=== PATIENT | female | born 1990 | race Two or more races ===

== ENCOUNTER 2024-07-28 17:55 | Observation (INO) | payer MEDICAID, SELFPAY ==
[2024-07-28 18:05] VITALS: BP 104/64; PULSE 82
[2024-07-28 18:43] VITALS: BP 104/64; PULSE 78; RESP 18; RESP 98; TEMP 36.8; BMI 286.8
[2024-07-28 18:52] LABS: ROM Kit Lot # 57809118; Swb Mxed in Solvent 1 min? Yes
[2024-07-28 18:53] LABS: ROM Swab Mixed By: SAUCT; Rupture of Fetal Membranes Negative (Negative)
== END 2024-07-28 19:21 | disposition home or self-care (01) ==
PROVIDERS: Admitting Provider Student in an Organized Health Care Education/Training Program; Visit Provider Student in an Organized Health Care Education/Training Program
DX: Z34.83 Encounter for supervision of other normal pregnancy, third trimester (principal); Z3A.33 33 weeks gestation of pregnancy
CPT/HCPCS: 59025; 59899; 84112

== ENCOUNTER 2024-09-01 13:49 | Outpatient (RCR) | payer MEDICAID, SELFPAY ==
--- NOTE | 2024-08-18 13:35 | XR_ITS ---
Examination: Biophysical profile, ultrasound Date and time of exam: August 18, 2024 at 1356 hrs. Indications: Diagnosis high risk Technique: Multiple transabdominal sonographic images of the pelvis abdomen obtained. Attention is directed to the breathing movement, gross body movement, amniotic fluid volume and tone. Findings: Amniotic fluid index 12.8 cm Total biophysical profile is 8 of 8. breathing movement is 2. Gross body movement is 2. tone is 2. Qualitative amniotic fluid volume is 2 Impression: Biophysical profile is 8 of 8.
[2024-08-18 14:38] VITALS: BP 134/72; PULSE 70; RESP 16; TEMP 36.7
--- NOTE | 2024-08-25 13:49 | XR_ITS ---
Examination: Biophysical profile, ultrasound Date and time of exam: August 25, 2024 1355 hours INDICATIONS: Diagnosis high risk , history stillborn Technique: Multiple transabdominal sonographic images of the pelvis abdomen obtained. Attention is directed to the breathing movement, gross body movement, amniotic fluid volume and tone. Findings: Amniotic fluid index 10.2 cm Total biophysical profile is 8 of 8. breathing movement is 2. Gross body movement is 2. tone is 2. Qualitative amniotic fluid volume is 2 Impression: Biophysical profile is 8 of 8.
[2024-08-25 14:20] VITALS: BP 119/63; PULSE 69; RESP 16; TEMP 36.7
--- NOTE | 2024-09-01 13:53 | XR_ITS ---
Examination: Biophysical profile, ultrasound Date and time of exam: September 01, 2024 1358 hours INDICATIONS: Diagnosis high risk , history stillborn Technique: Multiple transabdominal sonographic images of the pelvis abdomen obtained. Attention is directed to the breathing movement, gross body movement, amniotic fluid volume and tone. Findings: Amniotic fluid index 9.0 cm Total biophysical profile is 8 of 8. breathing movement is 2. Gross body movement is 2. tone is 2. Qualitative amniotic fluid volume is 2 Impression: Biophysical profile is 8 of 8.
[2024-09-01 14:22] VITALS: BP 107/60; PULSE 78; RESP 16; TEMP 36.7
== END 2024-09-01 23:59 | disposition home or self-care (01) ==
LOC: S4S1 13:49
PROVIDERS: Referring Provider Advanced Practice Midwife; Visit Provider Advanced Practice Midwife
DX: O09.93 Supervision of high risk pregnancy, unspecified, third trimester (principal); Z3A.39 39 weeks gestation of pregnancy
CPT/HCPCS: 59025; 76819

== ENCOUNTER 2024-09-02 08:25 | Observation (INO) | payer MEDICAID, SELFPAY ==
[2024-09-02 08:37] VITALS: BP 116/78; PULSE 64; RESP 16; TEMP 36.8
[2024-09-02 08:41] VITALS: BMI 71.4
[2024-09-02 08:43] VITALS: TEMP 36.9
[2024-09-02 08:46] VITALS: PULSE 74; O2SAT 98
[2024-09-02 08:51] VITALS: PULSE 79; O2SAT 98
[2024-09-02 08:56] VITALS: PULSE 67; O2SAT 99
[2024-09-02 09:01] VITALS: PULSE 67; O2SAT 98
== END 2024-09-02 09:09 | disposition home or self-care (01) ==
PROVIDERS: Admitting Provider Student in an Organized Health Care Education/Training Program; Visit Provider Student in an Organized Health Care Education/Training Program
DX: Z34.83 Encounter for supervision of other normal pregnancy, third trimester (principal); Z3A.38 38 weeks gestation of pregnancy
CPT/HCPCS: 59025; 59899

== ENCOUNTER 2024-09-02 17:10 | Inpatient (IN) | payer MEDICAID, SELFPAY ==
[2024-09-02] VITALS (15 sets, daily range): BP systolic 102–138; BP diastolic 55–85; PULSE 67–88; RESP 16–100; TEMP 36.6–37.1; BMI 32.3
[2024-09-02 17:40] LABS: Swb Mxed in Solvent 1 min? Yes
[2024-09-02 17:41] LABS: ROM Swab Mixed By: WORMR; Rupture of Fetal Membranes Positive (Negative)
[2024-09-02 18:53] LABS: Basophils % (Auto) 0 % (0-2.5); Eosinophils # (Auto) 0.1 Thou/mm3 (0.0-0.5); Eosinophils % (Auto) 1 % (0-10); Hematocrit 37.3 % (36.0-46.0); Hemoglobin 12.6 g/dL (12.0-16.0); Immature Granulocytes % (Auto) 1 % (0-0); Immature Granulocytes Auto 0.05 Thou/mm3 (0.00-0.00); Lymphocytes # (Auto) 1.8 Thou/mm3 (1.0-4.8); Lymphocytes % (Auto) 17 % (10-50); Mean Corpuscular HGB Conc 33.8 g/dl (31.0-37.0); Mean Corpuscular Hemoglobin 32.3 pg (25.0-35.0); Mean Corpuscular Volume 96 fL (80-100); Monocytes % (Auto) 9 % (0-12); Neutrophils # (Auto) 7.9 Thou/mm3 (1.8-7.7); Neutrophils % (Auto) 73 % (37-80); Nucleated Red Blood Cell % 0 /100 WBC (0); Platelet Count 223 Thou/mm3 (140-440); RDW Standard Deviation 46.2 fL (36.4-46.3); White Blood Count 10.8 Thou/mm3 (3.6-11.0)
[2024-09-02] MEDS: fentaNYL CIT INJ 50 mCg/ML AMP 2ML 100 MCG IV (19:10)
[2024-09-02] MEDS: OXYTOCIN in NS 20 units 20 UNIT/1,000 ML BAG 125 UNIT IV (20:18)
[2024-09-02] MEDS: TRANEXAMIC ACID 1,000 MG IVPB 1,000 MG/100 ML BAG 200 MG IV ×2 (20:19→22:10)
[2024-09-02] MEDS: METHYLERGONOVINE INJ 0.2 MG/ML VIAL IM (20:19)
[2024-09-02] MEDS: OXYTOCIN INJ 10 UNIT/ML VIAL IM (20:19)
[2024-09-02] MEDS: MISOPROSTOL 200 mCg TABLET 800 MCG PR (20:20)
--- NOTE | 2024-09-02 20:39 | PD.LDHP ---
Documentation for date of: 09/02/24 OB Labor/Induct. HPI History of Present Illness Chief complaint: labor : 5 Para: 3 Term pregnancies: 2 pregnancies: 1 Living children: 2 History of Abortions: Spontaneous and Elective: 1 History of Vaginal deliveries: 3 History of sections: No History of : No Date of last menstrual period: 11/28/23 SERA: 09/03/24 Gestational Age (weeks): 39 Gestational Age (days): 6 Gestational age based on last menstrual period: 39 History of present illness: 34-year-old 5 para 3 admit to labor and delivery for complaints of contractions since 10 in the morning. Complains of leaking fluid since 5:40 PM. Patient is been followed at [facility] care. First visit 37 weeks. Patient has a history of a demise at 29 weeks. She has had an uneventful this . Her last period November 28, 2023. Estimated due date September 03, 2024. 8-week sono in November put her concurrent with her dates. Denies social habits. Denies surgery. Denies chronic illness. She is O+, antibody screen negative, RPR nonreactive, rubella immune, hepatitis B-, hep C negative, HIV negative, GC and Chlamydia were negative. She had a normal 1 hour. GBS negative. And her screening tests NIPT were negative History of Present Dating criteria: LMP confirmed by 2nd trimester US Adequate Care: Yes Obstetrical complications: none Medical complications: none Labs Labs: Negative: Hepatitis B, HIV, Chlamydia, Gonorrhea and Group Beta Strep Review of Systems Review of Systems Systems Reviewed: All systems reviewed, normal except as documented Past Medical History Surgical History SURGICAL: Negative Section Meds Home Medications and Allergies Home Medications ?Medication ?Instructions ?Recorded ?Confirmed ?Type folic acid 1 mg tablet 1 mg PO QDAY 02/19/20 09/02/24 History vit no.95-ferrous 1 tab PO QDAY 02/19/20 09/02/24 History fumarate 28 mg-folic acid 800 mcg tablet () Allergies Allergy/AdvReac Type Severity Reaction Status Date / Time No Known Allergies Allergy Verified 09/02/24 09:10 OB Exam Physical Exam Vital signs: Temp Pulse Resp BP 97.8 F 87 16 110/55 L 09/02/24 17:25 09/02/24 20:39 09/02/24 17:25 09/02/24 20:39 Narrative: Normal heart rate and rhythm. Lungs clear no wheezes. Gravid abdomen. Gynecoid pelvis. Estimated weight 7 and half pounds. Vaginal exam admission was 70%, 5-6, -1. Vertex. Leaking clear fluid. Positive AmniSure. Contractions were 2 to 3 minutes. heart rate was 140 with accelerations and occasional mild variable. Variability was moderate. Detailed Labor and Delivery Exam Dilation (cm): 5-6 Effacement (%): 60 Cervix position: mid station: -1 Consistency: soft Presentation: Vertex Cervical ripeness score: 8 Membranes: ruptured Amniotic fluid: clear Baseline heart rate: 142 monitor accelerations: 15x15 monitor decelerations: Variable care home variability: Moderate (11-25) Contraction frequency (min): 2-3 Contraction duration (sec): 30 Tachysystole: No Contraction intensity: Moderate OB Results Labs 09/02/24 18:18 Labs: Short CBC 09/02/24 Range/Units 18:18 WBC 10.8 (3.6-11.0) Thou/mm3 Hgb 12.6 (12.0-16.0) g/dL Hct 37.3 (36.0-46.0) % Plt Count 223 (140-440) Thou/mm3 Impressions Impression: labor OB Assessment & Plan Assessment and Plan (1) Normal labor and delivery: Status: Acute Additional Plan Plan: anticipate NVD and consult MD rivers
[2024-09-02] MEDS: IBUPROFEN TAB 400 MG TABLET 800 MG PO (20:47)
[2024-09-02] MEDS: ceFAZolin/D5W 2 GM IV 2 GM/100 ML BAG IV (20:48)
--- NOTE | 2024-09-02 20:48 | PD.LDDELS ---
Data ([facility]) Data Hx Section: No : 5 Para: 2 Term: 0 : 0 : 0 Delivery Data ([facility]) Labor Data ROM Date: 09/02/24 ROM Time: 16:20 Rupture Type: SROM Amniotic Fluid: Clear Delivery Data EDC: 09/03/24 EDC calculated by:: LMP/early US confirmation Labor Onset Stage 1 Date: 09/02/24 Labor Onset Stage 1 Time: 16:20 Labor Onset Stage 2 Date: 09/02/24 Labor Onset Stage 2 Time: 19:55 Delivery Date: 09/02/24 Delivery Time: 19:59 Gestational age (weeks): 39 Gestational age (days): 6 Placenta Delivery Date: 09/02/24 Placenta Delivery Time: 20:06 Delivered by: Azul Bhandari Delivery nurse: Maria L Villar Other staff at delivery: Nursery Nurse Other staff at delivery: Janna Julien Delivery Method Delivery: Vaginal Delivery Type: Spontaneous Presentation: Vertex Position: OA Anesthesia Type Primary Anesthesia: None Placenta Placenta Delivery: Spontaneous (placenta inspected, intact) Placenta Cultures Obtained: No Placenta Sent for Examination: No Cord Sample: Cord Blood Obtained Episiotomy Episiotomy: None EBL Estimated blood loss (ml): 475 Umbilical Cord Umbilical Vessels: 3 Nuchal Cord: x1 Body Cord: None [place] Data ([facility]) Data Gender: Male Infant Weight Grams: 3460 1 Minute Total: 9 5 Minute Total: 9
[2024-09-02] MEDS: BENZO/LANO/ALOE (Dermoplast) 60 GM CAN 1 SPRAY TOP (20:51)
[2024-09-03 01:04] VITALS: BP 111/67; PULSE 70; RESP 16; TEMP 36.7; O2SAT 98
[2024-09-03 04:01] LABS: Syphilis Nonreactive (Nonreactive)
[2024-09-03] MEDS: ceFAZolin/D5W 2 GM IV 2 GM/100 ML BAG IV ×2 (04:53→12:30)
[2024-09-03] MEDS: OXYTOCIN in NS 20 units 20 UNIT/1,000 ML BAG 125 UNIT IV (04:53)
[2024-09-03 06:45] LABS: Basophils % (Auto) 0 % (0-2.5); Eosinophils # (Auto) 0.1 Thou/mm3 (0.0-0.5); Eosinophils % (Auto) 1 % (0-10); Hematocrit 33.3 % (36.0-46.0); Hemoglobin 11.4 g/dL (12.0-16.0); Immature Granulocytes % (Auto) 1 % (0-0); Immature Granulocytes Auto 0.05 Thou/mm3 (0.00-0.00); Lymphocytes # (Auto) 1.7 Thou/mm3 (1.0-4.8); Lymphocytes % (Auto) 16 % (10-50); Mean Corpuscular HGB Conc 34.2 g/dl (31.0-37.0); Mean Corpuscular Hemoglobin 32.3 pg (25.0-35.0); Mean Corpuscular Volume 94 fL (80-100); Monocytes # (Auto) 1.1 Thou/mm3 (0.0-0.8); Monocytes % (Auto) 10 % (0-12); Neutrophils # (Auto) 7.9 Thou/mm3 (1.8-7.7); Neutrophils % (Auto) 73 % (37-80); Nucleated Red Blood Cell % 0 /100 WBC (0); Platelet Count 187 Thou/mm3 (140-440); RDW Standard Deviation 45.6 fL (36.4-46.3); Red Blood Count 3.53 Miln/mm3 (4.00-5.20); White Blood Count 10.9 Thou/mm3 (3.6-11.0)
--- NOTE | 2024-09-03 07:51 | PD.LDPPPRG ---
Subjective Subjective Interval history: No complaints of pain. No dizziness. Bonding and breast-feeding. Exam Vital Signs Temp Pulse Resp BP Pulse Ox O2 Del Method 98.0 F 70 16 111/67 98 Room Air 09/03/24 01:04 09/03/24 01:04 09/03/24 01:04 09/03/24 01:04 09/03/24 01:04 09/03/24 01:04 Narrative Exam Normal heart rate and rhythm. Lungs are clear. Breasts are soft. 2+ DTRs. Negative Homans' sign. Fundus firm below the umbilicus. Minimal lochia. Perineum intact. Objective Labs 09/03/24 05:55 Labs: Laboratory Results - last 24 hr 09/02/24 09/02/24 09/03/24 17:22 18:18 05:55 WBC 10.8 10.9 RBC 3.90 L 3.53 L Hgb 12.6 11.4 L Hct 37.3 33.3 L MCV 96 94 MCH 32.3 32.3 MCHC 33.8 34.2 RDW Std Deviation 46.2 45.6 Plt Count 223 187 D Neut % (Auto) 73 73 Lymph % (Auto) 17 16 [place] % (Auto) 9 10 Eos % (Auto) 1 1 Baso % (Auto) 0 0 Neut # (Auto) 7.9 H 7.9 H Lymph # (Auto) 1.8 1.7 [place] # (Auto) 1.0 H 1.1 H Eos # (Auto) 0.1 0.1 Baso # (Auto) 0.0 0.0 Immature Gran # (Auto) 0.05 H 0.05 H Absolute Nucleated RBC 0.00 0.00 Immature Gran % 1 H 1 H Nucleated RBC % 0 0 Membrane Rupture Positive A Syphilis Serology Nonreactive Blood Type O Positive Antibody Screen NEGATIVE Blood Bank Wristband ID Yes Assessment & Plan Problem List (1) Normal labor and delivery: Status: Acute Assessment Comment Assessment comment: 24 hr pp Plan Comment Plan Comment: Discharge home with baby. Continue vitamins. Discussed danger signs and symptoms and ER precautions with parameters. Discussed signs and symptoms of infection. Ibuprofen or Tylenol for pain. Return in 3 to 4 weeks for visit Time Spent With Patient Time: Total time spent is greater than 50% in coordination of care (as documented) at patient's floor/unit and/or counseling patient:
--- NOTE | 2024-09-03 07:56 | ESDS_ITS ---
DS: Providers Provider Date of admission: 09/02/24 17:52 Primary care physician: Ronald Herbert MD Admitting Provider: Azul Bhandari CNM Attending Provider on Admission: Tj Parra MD Consults: 09/02/24 21:10 Referral Routine Comment: Attending Provider on DC: Azul Bhandari CNM Discharging Provider: Azul Bhandari CNM Summary/Hosp Course Brief History: 34-year-old 5 para 3 admit to labor and delivery for complaints of contractions since 10 in the morning. Complains of leaking fluid since 5:40 PM. Patient is been followed at [facility] care. First visit 37 weeks. Patient has a history of a demise at 29 weeks. She has had an uneventful this . Her last period November 28, 2023. Estimated due date September 03, 2024. 8-week sono in November put her concurrent with her dates. Denies social habits. Denies surgery. Denies chronic illness. She is O+, antibody screen negative, RPR nonreactive, rubella immune, hepatitis B-, hep C negative, HIV negative, GC and Chlamydia were negative. She had a normal 1 hour. GBS negative. And her screening tests NIPT were negative Peripartum Data Delivery Method: Normal Vaginal Delivery Episiotomy Description: None Laceration Description: no Time Spent with Patient Time attestation: Total time spent providing and/or coordinating discharge services: Exam Vital Signs Temp Pulse Resp BP Pulse Ox O2 Del Method 98.0 F 70 16 111/67 98 Room Air 09/03/24 01:04 09/03/24 01:04 09/03/24 01:04 09/03/24 01:04 09/03/24 01:04 09/03/24 01:04 Discharge Plan Plan Patient Disposition: HOME (Self Care) Patient condition on transfer: Stable Prescriptions/Referrals Prescriptions/Med Rec: No Action folic acid 1 mg Tablet 1 mg PO QDAY PNV cmb#95-ferrous fumarate-FA [] 28 mg iron- 800 mcg Tablet 1 tab PO QDAY Referrals: Ronald Herbert MD [Primary Care Provider] - Patient/Caregiver Discharge Instructions Meds to Beds: No Discharge Activity: resume usual activities Print Language: Bel[place]ian Activity Restrictions/Additional Instructions: Discharge home with baby. Continue vitamins and iron. Tylenol ibuprofen for pain. Danger signs. Return in 3 weeks for visit. I discussed ER precautions and parameters with patient and signs and symptoms of infection. Stand Alone Forms: Jennifer Award Info., Patient Portal Info Letter Discharge Order Discharge Orders: Discharge (Routine); Ordered 09/03/24 Ordered By: Azul Bhandari Planned Discharge Date 09/03/24
[2024-09-03] MEDS: IBUPROFEN TAB 400 MG TABLET 800 MG PO (08:32)
[2024-09-03] MEDS: DOCUSATE SOD 100 MG CAPSULE PO ×2 (08:33→20:54)
[2024-09-03 08:35] VITALS: BP 111/73; PULSE 83; RESP 16; TEMP 37; O2SAT 96
[2024-09-03 12:40] VITALS: BP 107/69; PULSE 76; RESP 16; TEMP 36.7; O2SAT 98
[2024-09-03 16:30] VITALS: BP 109/71; PULSE 73; RESP 17; TEMP 37; O2SAT 97
[2024-09-03 20:45] VITALS: BP 114/74; PULSE 72; RESP 18; TEMP 36.7; O2SAT 97
[2024-09-03] MEDS: ACETAMINOPHEN 325 MG TABLET 650 MG PO (20:54)
== END 2024-09-03 22:30 | disposition home or self-care (01) | DRG 560 ==
LOC: S4NX 09-03 07:54 → S4SX 09-03 07:54
PROVIDERS: Admitting Provider Advanced Practice Midwife; PCP Family Medicine; Visit Provider Student in an Organized Health Care Education/Training Program
DX: O69.81X0 Labor and delivery complicated by cord around neck, without compression, not applicable or unspecified (principal); Z37.0 Single live birth; Z3A.39 39 weeks gestation of pregnancy
CPT/HCPCS: 36415; 59025; 59409; 84112; 85025; 86780; 86850; 86900; 86901; 94762; J0689; J2210; J2590; J3010; J3490; S0191; A9270

== ENCOUNTER 2024-09-28 11:39 | Outpatient (AMB) | payer MEDICAID, SELFPAY ==
--- NOTE | 2024-09-28 12:09 | GYNCLNT_ITS ---
Vital Signs 09/28/24 12:10 Weight 79.605 kg Weight Measurement Method Standing Scale BP 130/79 Blood Pressure Source Automatic Cuff Blood Pressure Location Left Upper Arm Position Sitting Respiration 18 Pulse 70 Pulse Source Monitor Temp 97.2 F Temp Source Oral Pulse Oximetry (%) 99 Oxygen Delivery Method Room Air Allergies/Home Meds Allergies & Medications Allergies No Known Allergies Allergy (Verified 09/28/24 12:11) Medication Reconciliation folic acid 1 mg tablet 1 mg PO QDAY 02/19/20 [History Confirmed 09/28/24] vit no.95-ferrous fumarate 28 mg-folic acid 800 mcg tablet () 1 tab PO QDAY 02/19/20 [History Confirmed 09/28/24] Intake Visit Data Collection New Patient or Established: Established Patient (seen at [facility] within 3 years) Reason for Visit:: 3 week pp visit Seen by Clinical Staff ONLY (RN/MA): No Level Designer Required: No Do You Feel Safe at Home: Yes Authorities Contacted: N/A PCP or OBGYN visit in last 3 months: No Hx Now: No Are you currently on any form of Control: No Pain Present Currently: No Pain Scale Used: [place]-Lau/Numerical Pain scale:: 0 Smoking Status Smoking Status: Never smoker 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 1. Little interest or pleasure in doing things: not at all 2. Feeling down, depressed, or hopeless: not at all Total score: 0 PHQ-9 3. Trouble falling or staying asleep, or sleeping too much: Not at all 4. Feeling tired or having little energy: Not at all 5. Poor appetite or overeating: Not at all 6. Feeling bad about yourself - or that you are a failure or have let yourself or your family down: Not at all 7. Trouble concentrating on things, such as reading the newspaper or watching television: Not at all 8. Moving or speaking so slowly that other people could have noticed? - Or the opposite - being so fidgety or restless that you have been moving around a lot more than usual: not at all 9. Thoughts that you would be better off or of hurting yourself in some way: Not at all Total score: 0 If you checked off any problems, how difficult have these problems made it for you to do your work, take care of things at home, or get along with other people?: not difficult at all Source: Developed by Drs. Edis Pink, rBigid Reis, Horacio Silva and colleagues, with an educational andrae from [employer]. Depression screen completed yes Social History Living Situation History Marital Status: Single Lives With: Family Housing: House Tobacco History Smoking Status: Never smoker Second Hand Smoke Exposure: No Alcohol History Alcohol Intake: Never Domestic Abuse History Do You Feel Safe at Home: Yes Past Medical History Past Medical History Have you ever been diagnosed with any of the following: Neurological Problems Seizures: No Cardiology Problems Congestive Heart Failure: No Respiratory Problems Chronic Obstructive Pulmonary Disease (COPD): No Genital/Urinary Problems Renal Disease: No Head,Eye,Nose,Throat Problems Cataracts: No Endocrine Problems Diabetes Mellitus Type 1: No Diabetes Mellitus Type 2: No Other Problems Hospitalization: No Down Syndrome: No Developmental Delay: No Falls: No Blood Transfusions: No Blood Transfusion Reaction: No Anesthesia Reactions: No Organ Transplant: No Surgical History Carotid Endarterectomy: No Coronary Artery Bypass Graft: No Valve Replacement: No Hysterectomy: No Pacemaker: No Thyroidectomy: No History of Present Illness HPI Narrative 34-year-old 5 para 3 comes today for her 3-week visit. Patient had a vaginal delivery September 02, 2024. Baby boy weighing 7 pounds 10. Uncomplicated . No lacerations. Patient is breast and bottlefeeding. She reports that she is happy and denies signs and symptoms of depression. The patient is here with her mom. She would like to have the ParaGard IUD. She used it in the past with no problems. She is not sexually active at this time. Denies any signs and symptoms of infection. Siblings are adjusting. Pain Assessment Are you having any pain?: No Pain scale (0-10): 0 Sexual Activity Sexual activity counseling done: Yes Resumed intercourse: No Dyspareunia: No Change in libido: No Emergency contraception: advised STI Risk Assessment Questions for the patient: 1. Have you ever had sex (no matter whether oral, vaginal, or anal)?: no, 2. Do you have sex with men?: yes, 3. Do you have sex with women?: no, 4. Do you have sex with both men and women?: no, 5. Have you had sex within the last 12 months?: yes, 6. Are you in a long-term relationship in which you and your partner only have sex with each other and no one else?: yes, 7. Have you had a new partner within the last 12 months?: no, 8. Have you had multiple sexual partners within the last 12 months?: no, 9. Do you use condoms every time you have sex?: no, 10. Do you have sex while under the influence of alcohol or drugs?: no, 11. Do you have sex in exchange for money or drugs?: no, 12. Do you use IV drugs?: no, 13. Do you have a sexual partner who has HIV, is bisexual, or uses IV drugs?: no, 14. Have you had a sexually transmitted infection?: no, 15. Have you requested testing for a sexually transmitted infection within the last 24 months?: no, 16. Have you been tested for HIV?: no and 17. Do you live in an adult correctional facility?: no Questions for the provider: 18. Does the patient live or receive medical care in a setting with a high prevalence for HIV or syphilis?: no Control control method(s) used: undecided Received Tdap: Yes Menses resumed: No Diet Is taking folic acid supplementation: No Eats food rich in folic acid: Yes Parenting Problem identified: No Bonding With Problem identified: No Problem identified: No Referral for counseling: No Infant Feeding Feeding method: combination Tobacco Smoking Status: Never smoker 2hr glucose: No Return of menses: No Resuming intercourse: [place] of baby: JER Gender: male Date of delivery: 09/02/24 Route of delivery: Order: wheat Delivery outcome: liveborn Interim details: breast and bottle feeding Interim complaints: none [place] concerns: none [place] score: 0 Review of Systems Review of Systems Systems Reviewed: All systems reviewed, normal except as documented Genitourinary Genitourinary: Denies change in libido Psychiatric Psychiatric: Denies change in libido Endocrine Endocrine: Denies change in libido Exam Narrative Physical exam: breats soft, symmetrical, no mastitis, fundus firm, well involuted, non tender. perineum intact, no laceration. 2+ dtr, negative homans General Limitations: no limitations General Appearance: alert, in no apparent distress, comfortable, cooperative, healthy appearing, well developed and well groomed Head Head exam: atraumatic, normocephalic and normal inspection Chest Chest inspection: Present normal inspection and symmetric chest wall rise Resp Respiratory exam: Present normal lung sounds bilaterally Card Cardiovascular exam: Present regular rate, normal rhythm and normal heart sounds Abdominal Abdominal exam: Present soft and normal bowel sounds Psych Psychiatric exam: Present normal affect and normal mood Assessment & Plan Diagnosis / Problem List (1) Routine Follow-Up: (2) Breast feeding status of mother: Status: Acute (3) Encounter for visit: Status: Acute Plan Discussed and reviewed latching with patient. Discussed breast-feeding positions. Increase fluids. Continue vitamins. Tylenol or ibuprofen for discomfort. No sex. I reviewed IUD ParaGard side effects and effectiveness. Reviewed insertion with patient. Increase rest. Ibuprofen 600 mg 30 minutes before insert. Return in 3 weeks for IUD insertion Additional Plan Follow Up: 3 Weeks (IUD insert) Office Procedures OB Clinic LOC & Office Proc's Nursing/Assessment Patient Status: Established Patient OB Clinic Nursing Assessment: BP Monitoring, Medication Reconciliation, Update PMH in EMR and Vital Signs OB Clinic Coordination of Care: Consent,records obtained, informed consent, Education Simp Pt/Fam, Lab and Imaging orders and Staff clarify orders Established Patient Charge Established Patient Point Assignment: 90 Established Patient Point Charge: EP Level 3 (80-115) Post Follow-up Visit Post Follow up Visit: Yes
[2024-09-28 12:10] VITALS: BP 130/79; PULSE 70; RESP 18; TEMP 36.2; O2SAT 99
== END 2024-09-28 12:31 | disposition home or self-care (01) ==
LOC: HODSOBC 11:39
PROVIDERS: Supervising Provider Obstetrics & Gynecology; Visit Provider Advanced Practice Midwife
DX: Z39.2 Encounter for routine postpartum follow-up (principal); Z30.014 Encounter for initial prescription of intrauterine contraceptive device
CPT/HCPCS: 99213; G0463

== ENCOUNTER 2024-11-03 11:08 | Outpatient (AMB) | payer MEDICAID, SELFPAY ==
[2024-11-03 11:36] VITALS: BP 120/80; PULSE 71; RESP 17; TEMP 36.6; O2SAT 95; BMI 29.8
--- NOTE | 2024-11-03 11:36 | GYNCLNT_ITS ---
Vital Signs 11/03/24 11:36 Height 1.65 m Height Method Stated Weight 81.42 kg Weight Measurement Method Standing Scale BMI 29.8 BP 120/80 Blood Pressure Source Automatic Cuff Blood Pressure Location Right Upper Arm Position Sitting Respiration 17 Pulse 71 Pulse Source Monitor Temp 97.9 F Temp Source Temporal Artery Scan Pulse Oximetry (%) 95 Oxygen Delivery Method Room Air Allergies/Home Meds Allergies & Medications Allergies No Known Allergies Allergy (Verified 11/03/24 11:39) Intake Visit Data Collection New Patient or Established: Established Patient (seen at [facility] within 3 years) Reason for Visit:: IUD INSERT Seen by Clinical Staff ONLY (RN/MA): No Production Worker Required: No Do You Feel Safe at Home: Yes Authorities Contacted: N/A PCP or OBGYN visit in last 3 months: Yes Date of Last PCP or OBGYN visit: 09/28/24 Hx Now: No Last menstrual period: 10/17/24 Pain Present Currently: No Pain scale:: 0 Smoking Status Smoking Status: Never smoker [employer] HELPER: Past Medical History Past Medical History: No Hx Neurological Disorders, No Hx Cardiac Disorders, No Hx Blood Disorders, No Hx Gastrointestinal Disorders, No Hx Renal Disease, No Hx Diabetes Mellitus Type 1, No Hx Diabetes Mellitus Type 2, No Hx Tubal Ligation and No Hx Hysterectomy Questionnaires Covid-19 Vaccine Questionnaire Has patient been vacinated for Covid-19 Have you been vacinated for Covid-19: Yes PHQ-9 PHQ-2 Over the last 2 weeks, how often have you been bothered by any of the following problems? 1. Little interest or pleasure in doing things: not at all 2. Feeling down, depressed, or hopeless: not at all Total score: 0 PHQ-9 3. Trouble falling or staying asleep, or sleeping too much: Not at all 4. Feeling tired or having little energy: Not at all 5. Poor appetite or overeating: Not at all 6. Feeling bad about yourself - or that you are a failure or have let yourself or your family down: Not at all 7. Trouble concentrating on things, such as reading the newspaper or watching television: Not at all 8. Moving or speaking so slowly that other people could have noticed? - Or the opposite - being so fidgety or restless that you have been moving around a lot more than usual: not at all 9. Thoughts that you would be better off or of hurting yourself in some way: Not at all Total score: 0 If you checked off any problems, how difficult have these problems made it for you to do your work, take care of things at home, or get along with other people?: not difficult at all Source: Developed by Drs. Edis Pink, Brigid Reis, Horacio Silva and colleagues, with an educational andrae from [employer]. Depression screen completed yes Social History Living Situation History Marital Status: Lives With: Family Housing: House Tobacco History Smoking Status: Never smoker Second Hand Smoke Exposure: No Alcohol History Alcohol Intake: Never Domestic Abuse History Do You Feel Safe at Home: Yes History of Present Illness HPI Narrative 34 yo for IUD insert. Desire paraguard. used in past, no problems in past. no pmh, no social habit,no surgery. monogamous. 09/02/24,uncomplicated. breast feeding. lmp 10/17/24. last sex, 1 week, condom Review of Systems Review of Systems Systems Reviewed: All systems reviewed, normal except as documented Exam Narrative Physical exam: abdomen soft, perineum clear, no lesion, vagina pink, no discharge, parrous cervis. uterus retrovert, negative preg test General Limitations: no limitations General Appearance: alert, in no apparent distress, comfortable, cooperative, healthy appearing, well developed and well groomed Head Head exam: atraumatic, normocephalic and normal inspection Resp Respiratory exam: Present normal lung sounds bilaterally Card Cardiovascular exam: Present regular rate, normal rhythm and normal heart sounds Abdominal Abdominal exam: Present soft and normal bowel sounds Psych Psychiatric exam: Present normal affect and normal mood Results Objective Laboratory: neg Office Procedures OB Clinic LOC & Office Proc's Nursing/Assessment Patient Status: Established Patient OB Clinic Nursing Assessment: Medication Reconciliation, Update PMH in EMR and Vital Signs OB Clinic Coordination of Care: Education Complex Pt/Fam, Consent,records obtained, informed consent, Lab and Imaging orders, Results/Orders obtained and Staff clarify orders Miscellaneous Interventions: Blood/Urine Collection and Pelvic no cultures Established Patient Charge Established Patient Point Assignment: 125 Established Patient Point Charge: EP Level 4 (120-155) In Clinic Bedside tests Bedside HCG: Yes In Clinic Procedures INSERTION OF ANY IUD DEVICE: Yes Urine HCG Ambulatory Location Ambulatory Dept Location: OB Clinic Urine HCG HCG: Yes Results Urine HCG 2 Urine HCG Negative Last Edit by Marissa Philip MA on 11/03/24 11:4 6 Assessment & Plan Diagnosis / Problem List (1) Encounter for management of intrauterine contraceptive device (IUD): Status: Acute (2) Encounter for IUD insertion: Status: Acute Plan consent for paraguard insert, review method and side effect, no sex x 3 days, condom x 2 week, discuss string check q month, Ibuprophen as needed for cramps, discuss s/s of expulsion and PAINS. 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 exp: 01/03) IUD Lot and Exp: Lot#: [id number] Expiration date: 01/03 Procedure Notes:: patient in lithotomy. time out done, negative preg test, uterus retro vert, speculum insert. cx parrous. betadine cleanse of cx x 3. paraguard insert with applicator, string trim to 3 cm. no bleeding. tolerated well. stable
== END 2024-11-03 11:57 | disposition home or self-care (01) ==
LOC: HODSOBC 11:08
PROVIDERS: PCP Advanced Practice Midwife; Referring Provider Advanced Practice Midwife; Supervising Provider Advanced Practice Midwife; Visit Provider Advanced Practice Midwife
DX: Z30.430 Encounter for insertion of intrauterine contraceptive device (principal)
CPT/HCPCS: 58300; 81025; 99214; J7300; G0463